=== PATIENT | male | born 2000 | race Caucasian/White ===

== ENCOUNTER 2022-02-28 19:59 | Inpatient (IN) | payer OTHER ==
[~2022-02-28] VITALS: Ht 175.3 cm; Wt 63.5 kg
[2022-02-28 20:11] VITALS: BP_SYST 145
--- NOTE | 2022-02-28 20:20 | NUR ---
Patient to ER bed 04 to gown for evaluation. Side rails up.
--- NOTE | 2022-02-28 20:25 | NUR ---
Dr. Castellano at bedside with patient for evaluation.
--- NOTE | 2022-02-28 20:26 | NUR ---
PT HERE ACCOMPANIED BY FAMILY MEMBERS C/O ABDOMINAL PAIN X2 WKS AND PER HE VOMITED BLOOD TODAY. DENIES DIARRHEA, DENIES FEVER. PMh:CROHNS DISEASE PT AAOX4, NO SOB NOTED AND NAD. PT AMBULATED WITH STEADY GAIT TO RM 4. REPORT GIVEN TO BRIE WRIGHT
--- NOTE | 2022-02-28 20:35 | NUR ---
Pt from home with c/o of upper abb that started yesterday with blood tinge emesis today. Pt reports feeling unwell for the past 2 weeks. Hx of chorns disease, reports having diahrrea last night. Pt reports no N/V at the moment.
[2022-02-28 20:36] LABS: BILIRUBIN,URINE NEGATIVE (NEGATIVE); BLOOD, URINE NEGATIVE (NEGATIVE); CLARITY/URINE CLEAR (CLEAR); COLOR,URINE YELLOW (YELLOW); GLUCOSE,URINE NEGATIVE (NEGATIVE); KETONES,URINE TRACE (NEGATIVE); LEUKOCYTE ESTERASE ,URINE NEGATIVE (NEGATIVE); NITRITE, URINE NEGATIVE (NEGATIVE); PROTEIN URINE NEGATIVE (NEGATIVE); UROBILINOGEN,URINE 0.2 (0.2-1.0)
[2022-02-28 21:08] LABS: ANION GAP 10 (5-15); CALCIUM 9.4 mg/dL (8.4-11.0); CHLORIDE 95 mmol/L (98-107); CREATININE 0.96 mg/dL (0.55-1.30); GLUCOSE 103 mg/dL (70-99); POTASSIUM 4.2 mmol/L (3.5-5.1); UREA NITROGEN, BLOOD 10 mg/dL (8-21)
[2022-02-28 21:09] LABS: BASOPHILS % (AUTO) 0.2 % (0.0-2.0); EOSINOPHILS % (AUTO) 0.1 % (0.0-4.0); HEMATOCRIT 26.2 % (36-54); HEMOGLOBIN 8.3 g/dL (14.0-18.0); LYMPHOCYTES # (AUTO) 2.1 K/uL (1.0-5.5); LYMPHOCYTES % (AUTO) 10.5 % (20.5-51.5); MEAN CORPUSCULAR HEMOGLOBIN 21 pg (27-31); MEAN CORPUSCULAR HGB CONC 32 % (32-36); MEAN CORPUSCULAR VOLUME 67 fL (79.0-98.0); MONOCYTES # (AUTO) 1.3 K/uL (0.0-1.0); MONOCYTES % (AUTO) 6.5 % (1.7-9.3); NEUTROPHILS # (AUTO) 16.4 K/uL (1.8-7.7); NEUTROPHILS % (AUTO) 82.7 % (40.0-70.0); RED BLOOD CELL COUNT(AUTO) 3.94 MIL/uL (4.2-6.2); WHITE BLOOD COUNT (AUTO) 19.9 K/uL (4.5-11.0)
[2022-02-28 21:16] LABS: PLATELET COUNT (AUTO) 953 K/uL (130-430)
[2022-02-28 21:22] LABS: ALANINE AMINOTRANSFERASE 9 U/L (12-78); ALBUMIN 2.7 g/dL (3.4-4.8); AMYLASE 27 U/L (0-100); ASPARTATE AMINOTRANSFERASE 13 U/L (10-37); LACTATE DEHYDROGENASE 129 U/L (85-227); LIPASE 51 U/L (73-393); TOTAL BILIRUBIN 0.2 mg/dL (0.0-1.0)
[2022-02-28 21:23] LABS: GFR AFRICAN AMERICAN 128 mL/min (>90)
--- NOTE | 2022-02-28 21:46 | NUR ---
COVID SAMPLE COLLECTED AND SENT TO LAB.
[2022-02-28 21:55] LABS: C-REACTIVE PROTEIN QUANT 31.9 mg/dL (0-0.5)
[2022-02-28 22:00] LABS: ACETONE, SERUM NEGATIVE (NEGATIVE)
[2022-02-28] MEDS ORDERED: ONDANSETRON HCL 4 MG/2 ML VIAL IVP ONE (22:00)
[2022-02-28] MEDS ORDERED: MORPHINE 2 MG/ML INJ. SYRINGE IVP ONE (22:00)
[2022-02-28] MEDS ORDERED: NACL 0.9% 1,000 ML IV ONE (22:00)
--- NOTE | 2022-02-28 22:12 | NUR ---
Admit bed requested Patient will be admitted to care of . Admitted to MED SURG unit. Diagnosis ABDOMINAL PAIN/ SBO Inpatient (Yes or No) Y Observation (Yes or No) N Orientation concerns or request close to nursing station (Yes or No) N Covid Status PENDING On vent or bipap N Isolation requirements Needs a sitter N From Home (Yes or if No enter name of facility) Y Requires Dialysis (Yes or No) N Med Rec Completed (Yes of No) PENDING
[2022-02-28] MEDS ORDERED: ONDANSETRON HCL 4 MG/2 ML VIAL IVP PRN (22:15)
--- NOTE | 2022-02-28 22:15 | NUR ---
Pt refused pain med at this time. Pt denies pain at this time.
[2022-02-28] MEDS ORDERED: ADAL10SY2 SQ (22:34)
[2022-02-28] MEDS ORDERED: DICY10SO PO (22:34)
[2022-02-28] MEDS ORDERED: PEN250 PO (22:34)
--- NOTE | 2022-02-28 22:34 | NUR ---
MED REC COMPLETED. INFORAMTION PROVIDED BY PATIENT.
[2022-02-28] MEDS: PANTOPRAZOLE SODIUM 40 MG/VIAL (PROTONIX) IVP SCH (23:08)
--- NOTE | 2022-02-28 23:20 | NUR ---
Patient will be admitted to care of Dr. Kelly. Admitted to TELEMETRY unit. Will go to room 100B. Belongings list completed. Complete and up to date summary report printed. SBAR report given to Valente WRIGHT at bedside with opportunity for questions.
--- NOTE | 2022-02-28 23:23 | NUR ---
pt is a new admit from the ED. admitted to med/surg unit for abd pain and sbo. pt arrive to the unit alert, awake and stable at this time. no c/o pain or n/v noted. mother yazan t bedside for comfort. 20g to left ac patent and intact. skin warm to touch and clean and dry. abd non tender to touch. belongings check. educate pt how to use call light. and place bed to lowest position.
[2022-02-28] MEDS: D5/0.45 NS 1,000 ML IV SCH (23:27)
[2022-03-01 00:23] VITALS: BP_SYST 140
[2022-03-01 00:45] VITALS: BP_SYST 140
[2022-03-01 08:01] VITALS: BP_SYST 132
[2022-03-01] MEDS: MORPHINE 2 MG/ML INJ. SYRINGE IVP PRN ×2 (08:01→23:15)
[2022-03-01] MEDS: PANTOPRAZOLE SODIUM 40 MG/VIAL (PROTONIX) IVP SCH (09:00)
[2022-03-01] MEDS ORDERED: DICY10CA13 PO (09:58)
[2022-03-01] MEDS ORDERED: MESA1.2T3 PO (09:58)
[2022-03-01] MEDS ORDERED: METHYLPREDNISOLONE SOD SUCC 40 MG/ML VIAL IVP ONE (11:30)
[2022-03-01 12:15] VITALS: BP_SYST 137
[2022-03-01] MEDS: D5/0.45 NS 1,000 ML IV SCH (12:30)
--- NOTE | 2022-03-01 13:21 | NUR ---
pt taken to lab via wheelchair for follow through xray of abd
[2022-03-01] MEDS ORDERED: GASTROGRAFIN 120 ML ONE (13:31)
--- NOTE | 2022-03-01 15:23 | NUR ---
CONSULTATION PAGED REASON FOR CONSULTATION:ABDOMINAL PAIN SMALL BOWEL OBSTRUCTION WAS CONSULT CALLED?Y PERSON WHO WAS NOTIFIED:ESTELITA CONSULTING PHYSICIAN:SUJATA NELSON STAFF SERVICES MANAGER SPECIALTY:GI STAFF SERVICES MANAGER PHONE NUMBER:[phone] REQUESTING PHYSICIAN:PALOMA GREENWOOD
--- NOTE | 2022-03-01 15:27 | NUR ---
CONSULTATION PAGED REASON FOR CONSULTATION:SMALL BOWEL OSTRUCTION, ABDOMINAL PAIN WAS CONSULT CALLED?Y PERSON WHO WAS NOTIFIED:RICHARD CONSULTING PHYSICIAN:BRANDAN MARTINEZ HORTICULTURALIST SPECIALTY:INFECTIOUS DISEASE HORTICULTURALIST PHONE NUMBER:[phone] REQUESTING PHYSICIAN:PALOMA GREENWOOD 1
[2022-03-01 16:00] VITALS: BP_SYST 135
[2022-03-01 19:20] LABS: HEMOGLOBIN 8.3 g/dL (14.0-18.0)
[2022-03-01 19:26] LABS: HEMATOCRIT 26.1 % (36-54); MEAN CORPUSCULAR HEMOGLOBIN 21 pg (27-31); MEAN CORPUSCULAR HGB CONC 32 % (32-36); MEAN CORPUSCULAR VOLUME 67 fL (79.0-98.0); RED BLOOD CELL COUNT(AUTO) 3.89 MIL/uL (4.2-6.2); RED CELL DISTRIBUTION WIDTH 17.3 % (9.0-15.0)
[2022-03-01 19:37] LABS: PLATELET COUNT (AUTO) 1035 K/uL (130-430)
[2022-03-01 20:00] VITALS: BP_SYST 131
[2022-03-01 20:28] LABS: WHITE BLOOD COUNT (AUTO) 22.2 K/uL (4.5-11.0)
[2022-03-01 20:29] LABS: ATYPICAL LYMPHOCYTES % 0 % (0-0); BAND % (MANUAL) 2 % (0-6); BASOPHILS % (MANUAL) 0 % (0-2); EOSINOPHILS % (MANUAL) 0 % (0-7); LYMPHOCYTES % (MANUAL) 5 % (20-46); MONOCYTES % (MANUAL) 3 % (0-11)
--- NOTE | 2022-03-01 20:40 | NUR ---
Paged Dr. Kelly for abnormal labs. wbc 22.2 platelets 1035
[2022-03-01] MEDS: METHYLPREDNISOLONE SOD SUCC 40 MG/ML VIAL IVP SCH (22:56)
[2022-03-01] MEDS: CEFEPIME 2 GM in D5W 100 ML IV SCH (22:57)
[2022-03-02 00:15] VITALS: BP_SYST 128
[2022-03-02] MEDS: D5/0.45 NS 1,000 ML IV SCH ×2 (00:55→14:15)
[2022-03-02] MEDS: metroNIDAZOLE 500 mg/NS 100 ML IV SCH ×3 (00:59→14:36)
--- NOTE | 2022-03-02 02:00 | NUR ---
PAGED DR. SUAREZ FOR LAB RESULTS. dR. [facility] FILLING STATION EQUIPMENT MECHANIC FOR HIM PER ANSWERING SERVICE HAS NOT CALLED BACK CHARGE NURSE AWARE
--- NOTE | 2022-03-02 03:20 | NUR ---
3RD ATTEMPT TO PAGE DR. CHAMPAGNE FOR LAB RESULTS
[2022-03-02 04:30] VITALS: BP_SYST 108
--- NOTE | 2022-03-02 04:50 | NUR ---
PAGED TO DR. SUAREZ FOR ABNORMAL LABS WBC 22.2 PLATELETS 1035 NO REPLY. CHARGE NURSE AWARE
[2022-03-02 07:45] LABS: BASOPHILS # (AUTO) 0.2 K/uL (0.0-0.2); BASOPHILS % (AUTO) 0.8 % (0.0-2.0); HEMATOCRIT 27.2 % (36-54); HEMOGLOBIN 8.6 g/dL (14.0-18.0); LYMPHOCYTES # (AUTO) 2.1 K/uL (1.0-5.5); LYMPHOCYTES % (AUTO) 9.8 % (20.5-51.5); MEAN CORPUSCULAR HEMOGLOBIN 22 pg (27-31); MEAN CORPUSCULAR HGB CONC 32 % (32-36); MEAN CORPUSCULAR VOLUME 68 fL (79.0-98.0); MONOCYTES # (AUTO) 0.9 K/uL (0.0-1.0); MONOCYTES % (AUTO) 4.3 % (1.7-9.3); NEUTROPHILS # (AUTO) 18.2 K/uL (1.8-7.7); NEUTROPHILS % (AUTO) 85.1 % (40.0-70.0); RED CELL DISTRIBUTION WIDTH 16.7 % (9.0-15.0); WHITE BLOOD COUNT (AUTO) 21.4 K/uL (4.5-11.0)
[2022-03-02 07:57] LABS: PLATELET COUNT (AUTO) 991 K/uL (130-430)
[2022-03-02 08:00] VITALS: BP_SYST 119
[2022-03-02 08:41] LABS: ALBUMIN 2.5 g/dL (3.4-4.8); CREATININE 0.83 mg/dL (0.55-1.30); POTASSIUM 4.2 mmol/L (3.5-5.1); TOTAL BILIRUBIN 0.1 mg/dL (0.0-1.0)
[2022-03-02] MEDS: PANTOPRAZOLE SODIUM 40 MG/VIAL (PROTONIX) IVP SCH (08:56)
[2022-03-02] MEDS: CEFEPIME 2 GM in D5W 100 ML IV SCH (08:56)
[2022-03-02] MEDS: METHYLPREDNISOLONE SOD SUCC 40 MG/ML VIAL IVP SCH (08:56)
[2022-03-02 09:27] LABS: CALCIUM 9.6 mg/dL (8.4-11.0)
[2022-03-02 10:08] LABS: TOTAL IRON BIND. CAPACITY 123 ug/dL (250-450)
[2022-03-02 12:45] VITALS: BP_SYST 132
--- NOTE | 2022-03-02 13:00 | NUR ---
pt currently tolerating lunch. pt denies pain at this time
[2022-03-02 14:15] VITALS: BP_SYST 132
[2022-03-02 16:00] VITALS: BP_SYST 130
[2022-03-02] MEDS ORDERED: PRED20TA PO (18:48)
--- NOTE | 2022-03-02 19:00 | NUR ---
pt dc home. pt received all education. pt to;erated dinner. pt has all belongings and paperwork. iv removed intact. id band removed. all prescriptions ordered. all needs meet.
--- NOTE | 2022-03-03 11:55 | NUR ---
Dispo code 01
== END 2022-03-02 19:00 | disposition home or self-care (01) | DRG 386 ==
LOC: SED 19:59 → SMU 22:08
PROVIDERS: ADMIT Internal Medicine; ATTEND Internal Medicine
DX: K50.90 Crohn's disease, unspecified, without complications (principal); E46 Unspecified protein-calorie malnutrition; K56.609 Unspecified intestinal obstruction, unspecified as to partial versus complete obstruction; K52.9 Noninfective gastroenteritis and colitis, unspecified; D72.829 Elevated white blood cell count, unspecified; D64.9 Anemia, unspecified; D75.839 Thrombocytosis, unspecified; D63.8 Anemia in other chronic diseases classified elsewhere; Z20.822 Contact with and (suspected) exposure to COVID-19; Z79.899 Other long term (current) drug therapy; Z68.20 Body mass index [BMI] 20.0-20.9, adult
CPT/HCPCS: 36415; 74250-TC; 76376; 80053; 81003; 82009; 82150; 83540; 83550; 83605; 83615; 83690; 84484; 85007; 85025; 85027; 86140; 87040; 96360; 99285; C9113; J0692; J1030; J2270; J2405; J3490; J7030; J7060; Q9963

== ENCOUNTER 2022-05-08 18:17 | Emergency (ER) | payer SELFPAY ==
[~2022-05-08] VITALS: Ht 175.3 cm; Wt 68.0 kg
[~2022-05-08 18:17] MED LIST: ADAL10SY2 SQ; DICY10CA13 PO; MESA1.2T3 PO; PRED20TA PO
[2022-05-08 18:49] VITALS: BP_SYST 162
--- NOTE | 2022-05-08 20:14 | NUR ---
Patient given written and verbal discharge instructions and verbalizes understanding. ER MD discussed with patient the results and treatment provided. Patient in stable condition. ID arm band removed. Patient educated on pain management and to follow up with PMD. Pain Scale [0]. Opportunity for questions provided and answered. Medication side effect fact sheet provided.
[2022-05-08 20:18] VITALS: BP_SYST 133
== END 2022-05-08 20:18 | disposition home or self-care (01) ==
LOC: SED 18:17
DX: S09.90XA Unspecified injury of head, initial encounter (principal); Z79.899 Other long term (current) drug therapy; W22.8XXA Striking against or struck by other objects, initial encounter; Y93.89 Activity, other specified; Y92.89 Other specified places as the place of occurrence of the external cause; Y99.8 Other external cause status
CPT/HCPCS: 70450-TC; 76376; 99284